=== PATIENT | female | born 1960 | race Caucasian/White ===

== ENCOUNTER 2020-07-08 12:56 | Emergency (ER) | payer MEDICAID, OTHER ==
[~2020-07-08] VITALS: Ht 162.6 cm; Wt 63.5 kg
--- NOTE | 2020-07-08 13:11 | NUR ---
Pt states taking 2 different diabetic medication but unable to recall names/dosages.
--- NOTE | 2020-07-08 13:29 | NUR ---
Patient discharged to home in stable condition. Written and verbal after care instructions given. Patient verbalizes understanding of instructions. Stressed follow up or return to ER for worsening s/s.
== END 2020-07-08 14:02 | disposition home or self-care (01) ==
LOC: ER 12:56
DX: B34.9 Viral infection, unspecified (principal); Z20.828 Contact with and (suspected) exposure to other viral communicable diseases; E11.9 Type 2 diabetes mellitus without complications
CPT/HCPCS: A4663

== ENCOUNTER 2022-07-05 06:44 | Emergency (ER) | payer OTHER ==
[~2022-07-05] VITALS: Ht 162.6 cm; Wt 59.0 kg
--- NOTE | 2022-07-05 07:03 | NUR ---
Dr. Rodas at bedside for MSE.
[2022-07-05] MEDS ORDERED: NAPROXEN 500 MG TABLET PO ONE (07:15)
[2022-07-05] MEDS ORDERED: NAPROXEN 500 MG TABLET ONE (07:28)
[2022-07-05] MEDS ORDERED: HYDROCODONE/APAP 10-325 MG TABLET PO ONE (08:30)
[2022-07-05] MEDS ORDERED: HYDR-3980 PO (08:39)
--- NOTE | 2022-07-05 09:00 | NUR ---
Applied left short leg splint (fiberglass), secured with elastic bandage, PMS intact, cap refill < 2 sec. Gave pt crutches, trained pt on use, pt demonstrated understanding.
--- NOTE | 2022-07-05 09:30 | NUR ---
pt given RX and d/c instructions, pt verbalized understanding.
== END 2022-07-05 09:42 | disposition home or self-care (01) ==
LOC: ER 06:56
DX: S82.52XA Displaced fracture of medial malleolus of left tibia, initial encounter for closed fracture (principal); W10.8XXA Fall (on) (from) other stairs and steps, initial encounter; Y92.89 Other specified places as the place of occurrence of the external cause; Y99.8 Other external cause status; E11.9 Type 2 diabetes mellitus without complications
CPT/HCPCS: 73610; A4663